=== PATIENT | male | born 1940 | race Caucasian/White ===

== ENCOUNTER 2023-11-24 06:17 | Day surgery (SDC) | payer OTHER, SELFPAY ==
[2023-11-21 10:11] LABS: Hematocrit 45.2 % (39.0-52.0); Hemoglobin 15.3 g/dL (13.0-18.0); Mean Corp Hgb Conc. 33.8 g/dL (33.0-37.0); Mean Corpuscular Hgb 29.6 pg (27.0-31.0); Mean Corpuscular Volume 87.4 fL (80.0-94.0); Mean Platelet Volume 10.2 fL (7.4-10.4); Platelet Count 154 10^3/uL (130-400); Red Blood Cell Count 5.17 10^6/uL (4.70-6.10); Red Cell Dist. Width 14.1 % (11.5-14.5); White Blood Cell Count 7.1 10^3/uL (4.8-10.8)
[2023-11-21 10:39] LABS: Blood Urea Nitrogen 28 mg/dl (9-20); Calcium 9.5 mg/dl (8.4-10.2); Carbon Dioxide 31 mmol/L (22-30); Chloride 104 mmol/L (98-107); Glucose 101 mg/dl (70-99); Potassium 4.5 mmol/L (3.5-5.1); Sodium 139 mmol/L (135-145); eGFR 55.19
[2023-11-21 14:14] VITALS: BMI 27.4
[2023-11-24] VITALS (10 sets, daily range): BP systolic 87–143; BP diastolic 61–96; BMI 27.4
--- NOTE | 2023-11-24 07:00 | W.SUR.PREOP ---
Pre-Operative Surgical Note
-
I have examined this patient prior to the performance of the scheduled procedure.
The patient's condition is unchanged from the time of the current History and
Physical and the patient is able to undergo the scheduled procedure.
[2023-11-24] MEDS: NORMOSOL-R 1000 IV (07:08)
[2023-11-24] MEDS: TYLENOL 1000 MG PO (07:08)
--- NOTE | 2023-11-24 09:32 | W.IMMPOSTOP ---
Addendum entered and electronically signed by Noel Renteria MD 11/24/23 09:43:
#[id number]
Original Note:
Surgical Immed Post Op Note
-
Primary Surgeon: Dexter
Assisting Surgeon: Sayda GARCIA
Pre-op Diagnosis: Recurrent left inguinal hernia
Post-op Diagnosis: Recurrent left inguinal hernia, indirect
Procedure Performed: Open repair recurrent left inguinal hernia with mesh
Anesthesia Type: Monitored anesthetic care with local field block 1% lidocaine, 0.25% Marcaine
Specimen / Cultures: None
Estimated Blood Loss: 12 mL
Complications: None immediate
Operative Findings: Posterior lateral indirect inguinal hernia recurrence. 7.5 x 15 cm Bard mesh. Juan tension-free mesh repair.
== END 2023-11-24 11:04 | disposition home or self-care (01) ==
LOC: SDS 06:17
PROVIDERS: ATTENDING PHYSICIAN Surgery; FAMILY PHYSICIAN Internal Medicine Geriatric Medicine; OTHER PHYSICIAN Internal Medicine Cardiovascular Disease
DX: K40.91 Unilateral inguinal hernia, without obstruction or gangrene, recurrent (principal)
CPT/HCPCS: 49520; 36415; 80048; 85027; C1781